=== PATIENT | female | born 1975 | race Hispanic/Latino ===

== ENCOUNTER 2021-10-29 05:50 | Observation (INO) | payer OTHER ==
[2021-10-28 11:28] LABS: BASOPHILS % (AUTO) 0.5 % (0.0-5.0); EOSINOPHILS % (AUTO) 4.4 % (0.0-8.0); HEMATOCRIT 45.3 % (36-48); LYMPHOCYTES % (AUTO) 17.6 % (21.0-51.0); MEAN CORPUSCULAR HEMOGLOBIN 24.4 pg (27.0-33.0); MEAN CORPUSCULAR HGB CONC 30.7 g/dL (32.0-36.0); MEAN CORPUSCULAR VOLUME 79.6 fL (79-99); MONOCYTES % (AUTO) 10.4 % (3.0-13.0); NEUTROPHILS % (AUTO) 66.8 % (40.0-77.0); PLATELET COUNT (AUTO) 269 K/uL (130-400); RED BLOOD CELL COUNT(AUTO) 5.69 MIL/uL (4.00-5.50); RED CELL DISTRIBUTION WIDTH 21.4 % (11.0-15.5); WHITE BLOOD COUNT (AUTO) 6.4 K/uL (4.8-10.8)
[2021-10-28 13:36] VITALS: BP 157/73
[~2021-10-29] VITALS: Ht 162.6 cm; Wt 101.2 kg
[2021-10-29] VITALS (23 sets, daily range): BP systolic 123–174; BP diastolic 62–116
[~2021-10-29 05:50] MED LIST: FERR-82 PO; LACTATED RINGERS 1000ML 1,000 ML IV SCH
[2021-10-29] MEDS ORDERED: CEFAZOLIN SODIUM 1 GM VIAL IVP SCH (06:00)
[2021-10-29] MEDS ORDERED: SUCCINYLCHOLINE 200MG/10ML SYR ONE (08:09)
[2021-10-29] MEDS ORDERED: LIDOCAINE PF 100MG/5ML (2%) SYRINGE 5ML ONE (08:09)
[2021-10-29] MEDS ORDERED: DEXAMETHASONE SOD PHOSPHATE 10MG/ML 1ML VIAL ONE (08:09)
[2021-10-29] MEDS ORDERED: ONDANSETRON 4MG INJ ONE (08:10)
[2021-10-29] MEDS ORDERED: FENTANYL CITRATE PF 50 MCG/1 ML 2ML VIAL ONE ×2 (08:10→08:56)
[2021-10-29] MEDS ORDERED: ROCURONIUM 10MG/1ML SYR 10 MG/ML ML ONE (08:10)
[2021-10-29] MEDS ORDERED: NEOSTIGMINE 5MG/5ML SYR IV ONE (08:10)
[2021-10-29] MEDS ORDERED: MIDAZOLAM HCL 1 MG/ML 2ML VIAL ONE (08:10)
[2021-10-29] MEDS ORDERED: GLYCOPYRROLATE 1 MG/5 ML SYRINGE ONE (08:10)
[2021-10-29] MEDS ORDERED: PROPOFOL 10 MG/ML 20ML VIAL IV ONE (08:10)
[2021-10-29] MEDS ORDERED: CEFAZOLIN SODIUM 3 GM VIAL IV ONE (08:47)
[2021-10-29] MEDS ORDERED: FENTANYL CITRATE PF 50 MCG/1 ML 5ML AMP IV ONE (09:04)
[2021-10-29] MEDS ORDERED: MEPERIDINE-PF 25 MG/ML SYG ONE ×2 (10:30→10:37)
[2021-10-29] MEDS ORDERED: MEPERIDINE-PF 75 MG/ML SYG IM PRN (12:00)
[2021-10-29] MEDS ORDERED: PROMETHAZINE HCL 25 MG/ML 1ML AMPULE IM PRN ×2 (12:00)
[2021-10-29] MEDS ORDERED: BISACODYL 10 MG SUPP.RECT RC PRN (12:00)
[2021-10-29] MEDS ORDERED: ONDANSETRON 4MG INJ IVP PRN (12:00)
[2021-10-29] MEDS: DEXTROSE 5 %-0.45 % NACL 1,000 ML IV PRN ×2 (14:28→22:39)
[2021-10-29] MEDS: ACETAMINOPHEN WITH CODEINE 1 TAB TAB PO PRN ×2 (15:19→20:27)
[2021-10-29] MEDS: IBUPROFEN 600 MG TABLET PO PRN (18:50)
[2021-10-29] MEDS: SIMETHICONE 80 MG TAB.CHEW PO PRN (20:25)
[2021-10-29] MEDS: DOCUSATE SODIUM 100 MG CAP PO PRN (20:25)
[2021-10-30 03:25] VITALS: BP 121/54
[2021-10-30] MEDS: DEXTROSE 5 %-0.45 % NACL 1,000 ML IV PRN (06:45)
[2021-10-30 06:57] LABS: HEMATOCRIT 36.8 % (36-48); MEAN CORPUSCULAR HEMOGLOBIN 24.6 pg (27.0-33.0); MEAN CORPUSCULAR HGB CONC 30.7 g/dL (32.0-36.0); RED BLOOD CELL COUNT(AUTO) 4.6 MIL/uL (4.00-5.50); RED CELL DISTRIBUTION WIDTH 21.6 % (11.0-15.5); WHITE BLOOD COUNT (AUTO) 15.2 K/uL (4.8-10.8)
[2021-10-30 07:26] VITALS: BP 121/70
[2021-10-30] MEDS: SIMETHICONE 80 MG TAB.CHEW PO PRN (09:06)
[2021-10-30] MEDS: IBUPROFEN 600 MG TABLET PO PRN (09:07)
[2021-10-30] MEDS: DOCUSATE SODIUM 100 MG CAP PO PRN (09:07)
[2021-10-30] MEDS: ACETAMINOPHEN WITH CODEINE 1 TAB TAB PO PRN (10:42)
[2021-10-30 11:17] VITALS: BP 141/84
== END 2021-10-30 12:50 | disposition home or self-care (01) ==
LOC: DAH 05:50 → DAHIP 05:51 → DAH 05:51 → WSH 11:20
PROVIDERS: ADMIT Obstetrics & Gynecology; ATTEND Obstetrics & Gynecology
DX: N92.1 Excessive and frequent menstruation with irregular cycle (principal); Z20.822 Contact with and (suspected) exposure to COVID-19; N94.6 Dysmenorrhea, unspecified; D64.9 Anemia, unspecified; N81.5 Vaginal enterocele; N83.209 Unspecified ovarian cyst, unspecified side; E61.1 Iron deficiency; Z79.899 Other long term (current) drug therapy; Z98.890 Other specified postprocedural states
CPT/HCPCS: 36415 ×2; 58263; 85025; 85027; 86850; 86900; 86901; 87635; 96372; A4215; A4221; A4222; A4223; A4351; A4600; A4606; A4663; A6260; C9803; G0378 ×29; G0379; J0330; J0690 ×2; J1100; J2001; J2175 ×3; J2250; J2405; J2550; J2704; J2710; J3010 ×3; J3490; J7120 ×2